=== PATIENT | male | born 1990 | race Two or more races ===

== ENCOUNTER 2021-12-17 16:11 | Emergency (ER) | payer SELFPAY ==
[~2021-12-17] VITALS: Ht 177.8 cm; Wt 100.0 kg
[2021-12-17 16:57] VITALS: BP 116/79
[2021-12-17 17:34] LABS: Urine Bacteria NONE SEEN /hpf (None Seen); Urine Blood Negative /uL (Negative); Urine Specific Gravity 1.022 (1.001-1.035); Urine WBC 1 /hpf (0 - 3)
[2021-12-17] MEDS ORDERED: CYCL-837 PO (18:52)
[2021-12-17] MEDS ORDERED: IBUP800T27 PO (18:52)
[2021-12-17] MEDS ORDERED: KETOROLAC TROMETH 60MG/2ML VIAL IM ONE (19:00)
== END 2021-12-17 19:31 | disposition home or self-care (01) ==
LOC: ER 16:11
DX: S39.012A Strain of muscle, fascia and tendon of lower back, initial encounter (principal); F12.10 Cannabis abuse, uncomplicated; X50.0XXA Overexertion from strenuous movement or load, initial encounter; Y93.89 Activity, other specified; Y92.89 Other specified places as the place of occurrence of the external cause; Y99.8 Other external cause status
CPT/HCPCS: 72100; 81001; 96372; 99284; J1885

== ENCOUNTER 2023-07-19 10:19 | Emergency (ER) | payer MEDICAID, OTHER ==
[~2023-07-19] VITALS: Ht 177.8 cm; Wt 110.5 kg
[~2023-07-19 10:19] MED LIST: CYCL-837 PO; IBUP-1456 PO
[2023-07-19 10:54] VITALS: BP 119/83; PULSE 90; RESP 18; TEMP 98; O2SAT 98
[2023-07-19] MEDS: ACETAMINOPHEN 500 MG TAB PO ONE (11:23)
[2023-07-19] MEDS: cefTRIAXone SOD 1,000 MG VL IM ONE (11:23)
[2023-07-19] MEDS ORDERED: CEPH500C PO (11:24)
[2023-07-19] MEDS ORDERED: IBUP-1456 PO (11:24)
== END 2023-07-19 11:46 | disposition home or self-care (01) ==
LOC: ER 10:19
DX: J20.9 Acute bronchitis, unspecified (principal); J03.90 Acute tonsillitis, unspecified; F15.90 Other stimulant use, unspecified, uncomplicated; Z87.891 Personal history of nicotine dependence
CPT/HCPCS: 71046; 96372; 99283; J0696